=== PATIENT | female | born 1940 | race Caucasian/White ===

== ENCOUNTER 2018-07-06 12:07 | Outpatient (REF) | payer MEDICARE, SELFPAY ==
[2018-07-06 13:31] LABS: Anion Gap 9.3 mmol/L (3-11); BUN 23 mg/dL (7-18); CO2 26.7 mmol/L (21.0-32.0); CREATININE 0.94 mg/dL (0.55-1.02); Calcium 8.7 mg/dL (8.5-10.1); Chloride 106 mmol/L (98-107); Glucose 89 mg/dL (70-100); Potassium 4.4 mmol/L (3.5-5.1); Sodium 142 mmol/L (136-145)
[2018-07-06 14:12] LABS: Bilirubin Negative (Negative); Blood Negative (Negative); Clarity Clear; Glucose Negative (Negative); Ketones Negative (Negative); Leukocyte Esterase Moderate (Negative); Nitrite Negative (Negative); Urobilinogen 0.2 EU/dL (Up TO 0.2)
[2018-07-06 14:46] LABS: Bacteria Few HPF (Negative); C & S Indicated? Yes; Casts Negative LPF (Negative); Crystals Negative HPF (Negative); Epithelial Cells Few HPF (Negative); Mucus Negative (Negative); Other Cells Rare Renal (Negative); RBC Negative (0-2); WBC >50 HPF (0-5)
== END 2018-07-06 12:27 ==
LOC: NCHCN 12:07
PROVIDERS: PCP Family Medicine; Visit Provider Nurse Practitioner Family
DX: R30.0 Dysuria (principal); I10 Essential (primary) hypertension; D50.9 Iron deficiency anemia, unspecified
CPT/HCPCS: 80048; 87077; 81003; 81015; 85025; 87086; 87186

== ENCOUNTER 2018-07-07 15:44 | Outpatient (REF) | payer MEDICARE, SELFPAY ==
[2018-07-07 19:47] LABS: Bilirubin Negative (Negative); Blood Negative (Negative); Clarity Sl Cloudy; Glucose Negative (Negative); Ketones Trace mg/dL (Negative); Leukocyte Esterase Negative (Negative); Nitrite Negative (Negative); Urobilinogen 0.2 EU/dL (Up TO 0.2); pH 6.5 (5-8)
[2018-07-07 19:55] LABS: Abs Immature Grans 0.02 k/cumm (0.0-0.09); Absolute Basophil Count 0.04 k/cumm (0.0-0.2); Absolute Eosinophil Count 0.35 k/cumm (0.0-0.7); Absolute Lymphocyte Count 1.24 k/cumm (1.2-3.4); Absolute Monocyte Count 1.23 k/cumm (0.11-0.7); Absolute Neutrophil Count 5.73 k/cumm (1.2-6.7); Basophils % 0.5; Eosinophils % 4.1; HCT 34.8 % (36.0-46.0); HGB 10.7 g/dL (12.0-15.5); Immature Grans % 0.2; Lymphocytes % 14.4; Mean Corp. HGB Concentration 30.7 g/dL (32.0-36.0); Mean Corpuscular Volume 87.7 fL (80-95); Mean Platelet Volume 11.5 fL (8.0-11.0); Monocytes % 14.3; Neutrophils % 66.5; Platelet Count 232 x1000/uL (130-400); RBC 3.97 m/cumm (4.00-5.20); RBC Distribution Width 24.5 % (11.7-14.6); White Blood Cell Count 8.61 k/cumm (4.4-10.8)
[2018-07-07 20:13] LABS: Anion Gap 11.6 mmol/L (3-11); BUN 25 mg/dL (7-18); CO2 26.4 mmol/L (21.0-32.0); CREATININE 1.08 mg/dL (0.55-1.02); Calcium 9.2 mg/dL (8.5-10.1); Chloride 105 mmol/L (98-107); Estimated GFR 49.33 (mL/min/1.73m2); Glucose 96 mg/dL (70-100); Potassium 4.7 mmol/L (3.5-5.1); Sodium 143 mmol/L (136-145)
== END 2018-07-07 16:04 ==
LOC: NCHCN 15:44
PROVIDERS: PCP Family Medicine; Visit Provider Nurse Practitioner Family
DX: R30.0 Dysuria (principal); I10 Essential (primary) hypertension; D50.9 Iron deficiency anemia, unspecified
CPT/HCPCS: 80048; 81003; 85025

== ENCOUNTER 2018-07-29 08:22 | Outpatient (REF) | payer MEDICARE, SELFPAY ==
[2018-07-29 12:21] LABS: Mean Corp. HGB Concentration 31.6 g/dL (32.0-36.0); Mean Corpuscular Hemoglobin 27.3 pg (27.0-33.0); Mean Corpuscular Volume 86.6 fL (80-95); Mean Platelet Volume 11.4 fL (8.0-11.0); Platelet Count 236 x1000/uL (130-400); RBC 4.39 m/cumm (4.00-5.20); White Blood Cell Count 6.16 k/cumm (4.4-10.8)
[2018-07-29 12:31] LABS: Iron 58 ug/dL (50-175); Total Iron Binding Capacity 282 ug/dL (250-450); Transferrin Sat 21 % (15-50)
[2018-07-29 12:59] LABS: Anion Gap 11.5 mmol/L (3-11); BUN 25 mg/dL (7-18); CO2 27.5 mmol/L (21.0-32.0); CREATININE 1.01 mg/dL (0.55-1.02); Calcium 9.2 mg/dL (8.5-10.1); Chloride 101 mmol/L (98-107); Estimated GFR 53.29 (mL/min/1.73m2); Ferritin 22 ng/mL (8-388); Glucose 101 mg/dL (70-100); Potassium 4.2 mmol/L (3.5-5.1); Sodium 140 mmol/L (136-145); Vitamin B12 423 pg/mL (193-986)
[2018-07-29 13:07] LABS: Folate > 20.0 ng/mL (8.6-20.0)
== END 2018-07-29 08:42 ==
LOC: NCHCN 08:22
PROVIDERS: PCP Family Medicine; Visit Provider Family Medicine
DX: I10 Essential (primary) hypertension (principal); D50.9 Iron deficiency anemia, unspecified; E03.9 Hypothyroidism, unspecified
CPT/HCPCS: 80048; 85027; 82607; 82728; 82746; 83540; 83550; 84443

== ENCOUNTER 2018-11-01 09:08 | Outpatient (REF) | payer MEDICARE, SELFPAY ==
[2018-11-01 12:27] LABS: HCT 39.2 % (36.0-46.0); HGB 12.6 g/dL (12.0-15.5); Mean Corp. HGB Concentration 32.1 g/dL (32.0-36.0); Mean Corpuscular Hemoglobin 30.4 pg (27.0-33.0); Mean Corpuscular Volume 94.7 fL (80-95); Mean Platelet Volume 11.5 fL (8.0-11.0); Platelet Count 223 x1000/uL (130-400); RBC 4.14 m/cumm (4.00-5.20); RBC Distribution Width 15.2 % (11.7-14.6); White Blood Cell Count 6.67 k/cumm (4.4-10.8)
[2018-11-01 14:05] LABS: Anion Gap 7.5 mmol/L (3-11); BUN 24 mg/dL (7-18); CO2 28.5 mmol/L (21.0-32.0); CREATININE 1.03 mg/dL (0.55-1.02); Calcium 9.4 mg/dL (8.5-10.1); Chloride 105 mmol/L (98-107); Ferritin 27 ng/mL (8-388); Glucose 89 mg/dL (70-100); Potassium 4.3 mmol/L (3.5-5.1); Sodium 141 mmol/L (136-145)
== END 2018-11-01 09:28 ==
LOC: NCHCN 09:08
PROVIDERS: PCP Family Medicine; Visit Provider Family Medicine
DX: D50.9 Iron deficiency anemia, unspecified (principal); I10 Essential (primary) hypertension
CPT/HCPCS: 80048; 85027; 82728

== ENCOUNTER 2018-11-30 01:47 | Outpatient (CLI) | payer MEDICARE, SELFPAY ==
--- NOTE | 2018-11-30 08:30 | DI.RAD_ITS ---
SYMPTOM/DIAGNOSIS: CHRONIC LOW BACK PAIN, M54.5 LUMBAR SPINE: AP, lateral and bilateral oblique views were obtained. There are five lumbar type vertebral bodies. There is grade I pseudospondylolisthesis of L 4 on L 5. There is disc space narrowing at T 12-L 1, L 4-5 and L 5-S 1. There are vacuum discs at T 12-L 1 and L 5-S 1. There are degenerative changes of the facets throughout the lumbar spine, particularly from L 3-4 through L 5-S 1. No acute fractures or subluxations are seen. IMPRESSION: Moderate degenerative changes seen in the lumbar spine.
== END 2018-11-30 02:07 ==
PROVIDERS: PCP Family Medicine; Visit Provider Family Medicine
DX: M54.5 Low back pain (principal); M43.17 Spondylolisthesis, lumbosacral region; M47.817 Spondylosis without myelopathy or radiculopathy, lumbosacral region; M51.37 Other intervertebral disc degeneration, lumbosacral region; G89.29 Other chronic pain
CPT/HCPCS: 72110

== ENCOUNTER 2018-12-14 00:16 | Outpatient (CLI) | payer MEDICARE, SELFPAY ==
--- NOTE | 2018-12-14 08:00 | DI.MAMMO_ITS ---
SYMPTOM/DIAGNOSIS: SCREENING, Z12.31 MAMMOGRAMS: Mammograms were interpreted according to the usual protocol including computer analysis with CAD system, tomosynthesis and C view imaging. The breasts are of moderate density. There is asymmetric radiodensity of the upper outer quadrant of the left breast as seen on multiple previous examinations including 09/2017. No new mass or clumped microcalcification identified in either breast. CONCLUSION: No specific evidence of malignancy at this time. Routine screening examinations are suggested at yearly intervals in this age group according to the ACS/ACR guidelines. Category 1. Breast density, category B. MQSA ASSESSMENT OF FINDINGS: Negative. Category 1. Patient will receive a letter notifying them of these results. BI-RADS category B. There are scattered areas of fibroglandular density.
== END 2018-12-14 00:36 ==
PROVIDERS: PCP Family Medicine; Visit Provider Family Medicine
DX: Z12.31 Encounter for screening mammogram for malignant neoplasm of breast (principal)
CPT/HCPCS: 77063; 77067

== ENCOUNTER 2019-01-10 10:49 | Outpatient (REF) | payer MEDICARE, SELFPAY ==
[2019-01-10 13:21] LABS: Anion Gap 10.8 mmol/L (3-11); BUN 26 mg/dL (7-18); CO2 24.2 mmol/L (21.0-32.0); CREATININE 1.04 mg/dL (0.55-1.02); Calcium 9.3 mg/dL (8.5-10.1); Chloride 104 mmol/L (98-107); Estimated GFR 51.52 (mL/min/1.73m2); Glucose 105 mg/dL (70-100); Potassium 4.7 mmol/L (3.5-5.1); Sodium 139 mmol/L (136-145)
== END 2019-01-10 11:09 ==
LOC: NCHCN 10:49
PROVIDERS: PCP Family Medicine; Visit Provider Family Medicine
DX: I10 Essential (primary) hypertension (principal); N18.3 Chronic kidney disease, stage 3 (moderate)
CPT/HCPCS: 80048

== ENCOUNTER 2019-06-06 12:17 | Outpatient (REF) | payer MEDICARE, SELFPAY ==
[2019-06-06 12:53] LABS: HCT 39.5 % (36.0-46.0); Mean Corp. HGB Concentration 32.9 g/dL (32.0-36.0); Mean Corpuscular Volume 94.3 fL (80-95); Mean Platelet Volume 11.4 fL (8.0-11.0); Platelet Count 195 x1000/uL (130-400); RBC 4.19 m/cumm (4.00-5.20); RBC Distribution Width 13.4 % (11.7-14.6)
[2019-06-06 13:20] LABS: ALT 19 U/L (14-59); AST 17 U/L (15-37); Albumin 3.6 g/dL (3.4-5.0); Alkaline Phosphatase 61 U/L (46-116); Anion Gap 7.7 mmol/L (3-11); BUN 21 mg/dL (7-18); Bilirubin, Total 0.4 mg/dL (0.2-1.0); CO2 27.3 mmol/L (21.0-32.0); CREATININE 0.89 mg/dL (0.55-1.02); Calcium 8.7 mg/dL (8.5-10.1); Chloride 105 mmol/L (98-107); Glucose 89 mg/dL (70-100); Potassium 4.7 mmol/L (3.5-5.1); Sodium 140 mmol/L (136-145); Total Protein 6.6 g/dL (6.4-8.2)
[2019-06-06 15:43] LABS: Ferritin 79 ng/mL (8-388)
== END 2019-06-06 12:37 ==
LOC: NCHCN 12:17
PROVIDERS: PCP Family Medicine; Visit Provider Family Medicine
DX: D50.9 Iron deficiency anemia, unspecified (principal); I10 Essential (primary) hypertension; E03.9 Hypothyroidism, unspecified
CPT/HCPCS: 80053; 85027; 82728; 84443

== ENCOUNTER 2019-06-13 13:43 | Outpatient (REF) | payer MEDICARE, SELFPAY ==
--- NOTE | 2019-06-13 13:15 | SKI_PTH ---
PATIENT: Caren Graham LOC: [facility] U#:[id number] AGE/SX: 78/F ROOM: RE06/13/[address]: Jael Taylor : 1940 BED: DIS: 06/13/2019 SPEC #: [id number] RECD: 06/13/19 18:10 STATUS: RAFAT REDeo #: [id number] GEOVANNA: 06/13/19 13:[address]: Jael Taylor DEPT: Surgical Specimen RECD BY: Jaylyn Cobb Tissues: 1 - SKIN BIOPSY(SHAVE/PUNCH) Procedures: SKIN LEVEL 4 Comments: [id number]
== END 2019-06-13 14:03 ==
LOC: NCHCN 13:43
PROVIDERS: PCP Family Medicine; Visit Provider Family Medicine
DX: L82.1 Other seborrheic keratosis (principal)
CPT/HCPCS: 88305

== ENCOUNTER 2020-10-29 22:17 | Outpatient (REF) | payer MEDICARE, SELFPAY ==
[2020-10-29 19:21] LABS: HCT 41.2 % (36.0-46.0); HGB 13.5 g/dL (11.2-15.7); MCH 30.2 pg (27.0-33.0); MCHC 32.8 % (32.0-36.0); MCV 92.2 fL (80-95); MPV 10.9 fL (8.0-11.0); Platelet Count 236 10^3/uL (130-400); RBC 4.47 10^6/uL (3.93-5.22); RDW-SD 43.6 fL; WBC 7.38 10^3/uL (4.4-10.8)
[2020-10-29 20:36] LABS: ALT 21 U/L (14-59); AST 20 U/L (15-37); Alkaline Phosphatase 75 U/L (46-116); Anion Gap 10.4 mmol/L (3-11); BUN 20 mg/dL (7-18); Bilirubin, Total 0.2 mg/dL (0.2-1.0); CO2 25.6 mmol/L (21.0-32.0); Calcium 9.7 mg/dL (8.5-10.1); Chloride 106 mmol/L (98-107); Estimated GFR 53.62 (mL/min/1.73m2); Ferritin 72 ng/mL (8-252); Glucose 117 mg/dL (74-106); Potassium 5.2 mmol/L (3.5-5.1); Sodium 142 mmol/L (136-145); TSH (W/Ref FT4) 1.57 uIU/mL (0.36-3.74); Total Protein 7.1 g/dL (6.4-8.2)
== END 2020-10-29 22:18 | disposition home or self-care (01) ==
LOC: NCHCN 22:17
PROVIDERS: PCP Family Medicine; Visit Provider Family Medicine
DX: I10 Essential (primary) hypertension (principal); D50.9 Iron deficiency anemia, unspecified; E03.9 Hypothyroidism, unspecified; N18.30 Chronic kidney disease, stage 3 unspecified
CPT/HCPCS: 80053; 85027; 82728; 84443

== ENCOUNTER 2021-01-15 02:26 | Outpatient (CLI) | payer MEDICARE, SELFPAY ==
--- NOTE | 2021-01-15 | DI.DEXA_ITS ---
EXAM: XR DEXA BONE DENSITY W/WO ALYSIA CLINICAL HISTORY: DISORDER OF BONE DENSITY,M85.88 TECHNIQUE: Routine DEXA evaluation of the lumbar spine, hip, or forearm. COMPARISON: Prior DEXA scan September 2017 FINDINGS: Performed on a [employer] unit. Lateral image: No compression fracture evident. Lumbar Spine total T-score: -1.3 . Prior 2018 reading was -1.6 Hip total T-score:-2.4 . Prior 2018 reading was identical. Independent reading at the femoral neck yields a T-score of -2.3 Forearm total T-score: -3.0 IMPRESSION: Bone mineral density measures in the osteopenia bordering on osteoporosis. Range. Fracture risk is m oderate-high. Note: Any spine fracture indicates 5x risk for subsequent spine fracture and 2x risk for subsequent h ip fracture. World Health Organization criteria for BMD interpretation classify patients: Normal...... T- Score at or above -1.0 Osteopenic... T- Score between -1.0 and -2.5 Osteoporosis... T-Score at or below -2.5
--- NOTE | 2021-01-15 16:12 | DI.MAMMO_ITS ---
EXAM: MG MAMMO SCREENING CLINICAL HISTORY: SCREENING, Z12.31. TECHNIQUE: Bilateral full field digital CC and MLO mammographic images were obtained with 3D tomosyn thesis and utilizing computer aided detection (CAD). COMPARISON: Prior mammograms dating back to 2010, the most recent being November 2018. FINDINGS: Asymmetric tissue in left breast is unchanged from all prior studies. There are no new spiculated masses nor malignant appearing microcalcification groups. There is no significant architectural distortion nor skin thickening-retraction. IMPRESSION: No radiographic evidence of malignancy. BI-RADS Category 1 - Negative Breast Density - Category B - Scattered areas of fibroglandular density Breast density Category C or D implies that the patient has dense breast tissue. Dense breast tissue can make it harder to find cancer on a mammogram. Dense breast tissue is also associated with an incr eased risk of breast cancer. This information about the result of the mammogram report was provided to the patient to raise their awareness. Use this report when you speak with the patient about their risks for breast cancer, which includes their family history. At that time, you may recommend additional screening tests (Ultrasoun d or MRI) as these tests may add significant information. A negative radiographic report should not delay biopsy if a dominant or clinically suspicious mass is present. Up to ten percent of cancers are not identified on mammography. A negative report may reinforce clinical impression. Adenosis and dense breasts may obscure an underlying neoplasm. False positive reports average 6 to 10%. Patient will receive a letter notifying them of these results.
== END 2021-01-15 02:46 ==
PROVIDERS: PCP Family Medicine; Visit Provider Family Medicine
DX: Z12.31 Encounter for screening mammogram for malignant neoplasm of breast (principal); M85.88 Other specified disorders of bone density and structure, other site
CPT/HCPCS: 77063; 77067; 77080

== ENCOUNTER 2021-05-08 18:26 | Outpatient (REF) | payer MEDICARE, SELFPAY ==
[2021-05-08 21:18] LABS: Abs Immature Grans 0.01 10^3/uL (0.0-0.06); Absolute Basophil Count 0.05 10^3/uL (0.0-0.2); Absolute Eosinophil Count 0.17 10^3/uL (0.0-0.7); Absolute Lymphocyte Count 1.59 10^3/uL (1.2-3.4); Absolute Neutrophil Count 4.67 10^3/uL (1.2-6.7); Basophils % 0.7; Eosinophils % 2.2; HCT 42.4 % (36.0-46.0); HGB 13.8 g/dL (11.2-15.7); Immature Grans % 0.1; Lymphocytes % 20.9; MCH 30.1 pg (27.0-33.0); MCHC 32.5 % (32.0-36.0); MCV 92.4 fL (80-95); MPV 11.9 fL (8.0-11.0); Monocytes % 14.5; Neutrophils % 61.6; Nucleated RBC 0 %; Platelet Count 202 10^3/uL (130-400); RBC 4.59 10^6/uL (3.93-5.22); RDW 13.1 % (11.7-14.6); RDW-SD 44.5 fL; WBC 7.59 10^3/uL (4.4-10.8)
[2021-05-08 21:36] LABS: ALT 20 U/L (14-59); AST 17 U/L (15-37); Albumin 4.2 g/dL (3.4-5.0); Alkaline Phosphatase 69 U/L (46-116); Anion Gap 8.9 mmol/L (3-11); BUN 29 mg/dL (7-18); Bilirubin, Total 0.3 mg/dL (0.2-1.0); CO2 26.1 mmol/L (21.0-32.0); CREATININE 1.2 mg/dL (0.55-1.02); Calcium 9.1 mg/dL (8.5-10.1); Chloride 106 mmol/L (98-107); Estimated GFR 43.45 (mL/min/1.73m2); Glucose 100 mg/dL (74-106); Potassium 4.8 mmol/L (3.5-5.1); Sodium 141 mmol/L (136-145); TSH (W/Ref FT4) 1.16 uIU/mL (0.36-3.74); Total Protein 7.2 g/dL (6.4-8.2)
== END 2021-05-08 18:27 | disposition home or self-care (01) ==
LOC: LBN 18:26
PROVIDERS: PCP Family Medicine; Visit Provider Physician Assistant Medical
DX: I10 Essential (primary) hypertension (principal)
CPT/HCPCS: 80053; 84443; 85025

== ENCOUNTER 2021-05-13 15:06 | Outpatient (REF) | payer MEDICARE, SELFPAY ==
[2021-05-13 15:13] LABS: BUN 29 mg/dL (7-18); CREATININE 0.9 mg/dL (0.55-1.02); Calcium 9.1 mg/dL (8.5-10.1); Chloride 107 mmol/L (98-107); Glucose 93 mg/dL (74-106); Potassium 4.8 mmol/L (3.5-5.1); Sodium 142 mmol/L (136-145)
== END 2021-05-13 15:07 | disposition home or self-care (01) ==
LOC: NCHCN 15:06
PROVIDERS: PCP Family Medicine; Visit Provider Family Medicine
DX: I10 Essential (primary) hypertension (principal); N18.30 Chronic kidney disease, stage 3 unspecified
CPT/HCPCS: 80048

== ENCOUNTER 2021-11-07 17:59 | Outpatient (REF) | payer MEDICARE, SELFPAY ==
[2021-11-07 16:24] LABS: HCT 40.7 % (36.0-46.0); MCH 29.7 pg (27.0-33.0); MCHC 31.9 % (32.0-36.0); MCV 93.1 fL (80-95); MPV 11.5 fL (8.0-11.0); Platelet Count 223 10^3/uL (130-400); RBC 4.37 10^6/uL (3.93-5.22); RDW 13.4 % (11.7-14.6); RDW-SD 45.7 fL; WBC 7.14 10^3/uL (4.4-10.8)
[2021-11-07 18:17] LABS: BUN 21 mg/dL (7-18); CREATININE 0.9 mg/dL (0.55-1.02); Calcium 8.9 mg/dL (8.5-10.1); Chloride 104 mmol/L (98-107); Ferritin 44 ng/mL (8-252); Glucose 87 mg/dL (74-106); Potassium 4.4 mmol/L (3.5-5.1); Sodium 141 mmol/L (136-145); TSH (W/Ref FT4) 2.93 uIU/mL (0.36-3.74)
[2021-11-11 11:05] LABS: Hepatitis C Ab w Rflx HCV PCR Negative (Negative)
== END 2021-11-07 18:00 | disposition home or self-care (01) ==
LOC: NCHCN 17:59
PROVIDERS: PCP Family Medicine; Visit Provider Family Medicine
DX: D50.9 Iron deficiency anemia, unspecified (principal); I10 Essential (primary) hypertension; E03.9 Hypothyroidism, unspecified; Z11.59 Encounter for screening for other viral diseases
CPT/HCPCS: 80048; 85027; 86803; 82728; 84443

== ENCOUNTER → 2021-11-26 03:18 | Outpatient (CLI) | payer MEDICARE, SELFPAY ==
--- NOTE | 2021-11-26 | DI.RAD_ITS ---
Exam(s) XR KNEE RT 3V AP,LAT,LEO EXAM: XR KNEE RT 3V AP,LAT,LEO CLINICAL HISTORY: RT KNEE PAIN,M25.561. TECHNIQUE: 2D digital imaging was performed. COMPARISON: No exams were available for comparison FINDINGS: Three views of the right knee reveal no evidence of acute fracture nor prominent joint effusion. The re is imsk-ym-rbje narrowing of the lateral compartment with valgus deformity. Medial compartment ex hibits normal height. Moderate degenerative changes in the patellofemoral compartment. Bone density is age-appropriate IMPRESSION: Yflh-sl-gygv degenerative narrowing of the lateral compartment. DATA REPOSITORY: RADIATION DOSE DELIVERED:
== END ==
PROVIDERS: PCP Family Medicine; Visit Provider Family Medicine
DX: M25.561 Pain in right knee (principal); M17.11 Unilateral primary osteoarthritis, right knee; M21.061 Valgus deformity, not elsewhere classified, right knee
CPT/HCPCS: 73562

== ENCOUNTER 2022-01-23 11:58 | Outpatient (CLI) | payer MEDICARE, SELFPAY ==
--- NOTE | 2022-01-23 08:45 | DI.RAD_ITS ---
Exam(s) XR HIP RT COMPLETE AP PELVIS EXAM: XR HIP RT COMPLETE AP PELVIS CLINICAL HISTORY: eval R hip pain TECHNIQUE: COMPARISON: CR XR DEXA BONE DENSITY W/WO ALYSIA from 01/15/2021 FINDINGS: Three views were obtained. There is mild to moderate loss of the cartilaginous joint spaces of both hips. There are moderate acetabular and trochanteric osteophytes noted bilaterally. Femoral heads a re fairly well maintained bilaterally with minimal marginal osteophyte formation. IMPRESSION: Esli-aq-bxqpneoc DJD both hips. RADIATION DOSE DELIVERED: Total DLP
== END 2022-01-23 11:59 | disposition home or self-care (01) ==
LOC: DIORS 11:58
PROVIDERS: PCP Family Medicine; Referring Provider Family Medicine; Visit Provider Student in an Organized Health Care Education/Training Program
DX: M16.0 Bilateral primary osteoarthritis of hip (principal); M17.11 Unilateral primary osteoarthritis, right knee; M21.061 Valgus deformity, not elsewhere classified, right knee
CPT/HCPCS: 99202; 73502

== ENCOUNTER 2022-04-10 10:53 | Outpatient (CLI) | payer MEDICARE, SELFPAY ==
--- NOTE | 2022-04-10 09:20 | DI.RAD_ITS ---
Exam(s) XR LUMBAR SPINE COMP W FLEX/EX EXAM: XR LUMBAR SPINE COMP W FLEX/EX CLINICAL HISTORY: BACK PAIN. TECHNIQUE: 2D digital imaging was performed. COMPARISON: Prior x-rays 11/30/2018 FINDINGS: Seven views, including flexion extension lateral views. No evidence of compression fracture. Advanced disc space narrowing at L5-S1 level again noted. Also advanced disc space narrowing again noted at T12-L1 level. Other disc spaces exhibit milder narrowing and appear unchanged. There is again noted an element of degenerative anterolisthesis of L4 upon L5 due to facet arthropathy. This is slightly more prominent with flexion than extension. Upon flexion there is approximately 1 cm anterior slippage of L4 upon L5.. Upon extension this is approximately 8 millimeters. No slippage seen at the other levels,. No osseous lesions. No significant scoliosis. Multilevel facet joint arthritic changes. Sacroiliac joints unremarkable. No osseous lesions. IMPRESSION: Degenerative anterolisthesis of L4 upon L5, as was also evident on images of November 2018. The amount of anterolisthesis of L4 upon L5 appears slightly more prominent with flexion than extensi on. Upon flexion there appears to be 10 millimeter anterior slippage of L4 upon L5. This is related to facet arthropathy. There are no pars defects at this level. DATA REPOSITORY: RADIATION DOSE DELIVERED:
== END 2022-04-10 10:54 | disposition home or self-care (01) ==
LOC: DIORS 10:53
PROVIDERS: PCP Family Medicine; Referring Provider Family Medicine; Visit Provider Student in an Organized Health Care Education/Training Program
DX: M21.061 Valgus deformity, not elsewhere classified, right knee (principal); M43.16 Spondylolisthesis, lumbar region; M51.36 Other intervertebral disc degeneration, lumbar region
CPT/HCPCS: 72114; 99213

== ENCOUNTER → 2022-05-01 01:02 | Outpatient (CLI) | payer MEDICARE, SELFPAY ==
--- NOTE | 2022-05-01 08:15 | DI.MRI_ITS ---
Exam(s) MR LUMBAR SPINE WO EXAM: MR LUMBAR SPINE WO CLINICAL HISTORY: pain, lumbar radiculopathy, m54.16. TECHNIQUE: Multiplanar multisequence MRI of the Lumbar spine was performed. COMPARISON: CR XR LUMBAR SPINE COMP W FLEX/EX from 04/10/2022 FINDINGS: Conus medullaris is at normal level. There is no evidence of conus mass nor subjacent clumping of in trathecal nerve roots to suggest arachnoiditis. The distal thecal sac appears unremarkable.There is no evidence of Tarlov intrasacral cysts nor other significant findings within the sacral canal Bones:There are no fractures nor ominous osseous lesions in the lumbar vertebral bodies and visualize d sacrum. With respect to the individual levels... T12-L1: Decreased disc height and signal. Mild retrolisthesis of T12 on L1. There is posterior bony ridging and annular bulging more so central and right. Mild central canal stenosis. Mild foraminal stenosis on the right moderate severe foraminal stenosis on the left. This is mostly related to dis c height loss. Also degenerative changes facet joints. L1-2: Relatively preserved disc height. No significant disc herniation posteriorly with no central c anal stenosis. There is no foraminal stenosis on the right side. Mild foraminal stenosis on the lef t side due to annular bulging in the exiting left neural foramen floor. Mild degenerative changes in the facet joints. L2-3: Mild disc space narrowing. Broad bulging of the annulus, left more so than right, resulting in mild central spinal canal stenosis and extending into the floor of the exiting left neural foramen r esulting in moderate left-sided foraminal stenosis. There does appear to be a superimposed disc prot rusion in left lateral within the exiting neural foramen at this level causing some impingement upon the exiting left nerve root. There is no foraminal stenosis on the right side at this level. Mild d egenerative changes in the facet joints. L3-4: Mild decreased disc height. Symmetrical annular bulging. Moderate central canal stenosis due to annular bulging, short AP dimensions the pedicles and moderate degenerative changes in the facet j oints. There is no prominent foraminal stenosis on either side at this level. Moderate facet arthro hal bilaterally. L4-5: This level exhibits anterolisthesis of L4 upon L5 due to facet arthropathy and there is disc sp mohsen narrowing which is more prominent on the right than the left side. There is severe central spina l canal stenosis at this level, this related to the degenerative anterolisthesis, and there bulging a nd are. Lateral recesses are carried forward. There is no foraminal stenosis on the left side. Mil d foraminal stenosis on the right side due to the more prominent disc height loss on the right side t xiong the left side at this level. L5-S1: This level exhibits relatively uniform advanced disc height loss. There is, however, no disc herniation at this level. Central canal dimensions are lower normal. There is significant vertical foraminal stenosis on the left side at this level with impingement of the exiting left nerve root bet ween the annular bulging and overlying pedicle in the exiting left neural foramen. Milder vertical f oraminal stenosis evident on the right side at this level. Moderate degenerative changes in the face ts bilaterally. Soft tissues: paraspinal soft tissues appear unremarkable. IMPRESSION: 1. Multilevel findings as described individually above. However, the most severe central spinal hipolito l stenosis is at the L4-5 level where there is degenerative anterolisthesis of L4 upon L5. There is only mild foraminal stenosis on the right side at this level. 2. Multilevel foraminal stenosis including bilaterally at L5-S1 level and asymmetric foraminal narrow ing above this level as described individually above. 3. At the L 2-3 level there is mild central canal stenosis.. In addition to annular bulging there is a superimposed left disc protrusion at the level of the exiting left neural foramen this level causi ng impingement of the exiting left nerve root. Other findings as above. Also benign intraosseous hemangioma in the L2 vertebral body. No lytic oss eous lesions. DATA REPOSITORY:
== END ==
PROVIDERS: PCP Family Medicine; Visit Provider Student in an Organized Health Care Education/Training Program
DX: M54.16 Radiculopathy, lumbar region (principal); M48.061 Spinal stenosis, lumbar region without neurogenic claudication; M48.07 Spinal stenosis, lumbosacral region
CPT/HCPCS: 72148

== ENCOUNTER 2022-07-28 13:42 | Outpatient (REF) | payer MEDICARE, SELFPAY | END 2022-07-28 13:43 | disposition home or self-care (01) | LOC: NCHCN 13:42 | PROVIDERS: PCP Family Medicine; Visit Provider Family Medicine | DX: B37.9 Candidiasis, unspecified (principal) | CPT/HCPCS: 87480; 87510; 87660 ==

== ENCOUNTER 2022-11-25 10:52 | Outpatient (REF) | payer MEDICARE, SELFPAY ==
[2022-11-25 16:38] LABS: HCT 39.6 % (36.0-46.0); HGB 12.6 g/dL (11.2-15.7); MCH 29.9 pg (27.0-33.0); MCHC 31.8 % (32.0-36.0); MCV 94 fL (80-95); MPV 11.2 fL (8.0-11.0); Platelet Count 211 10^3/uL (130-400); RBC 4.21 10^6/uL (3.93-5.22); RDW 14.1 % (11.7-14.6); RDW-SD 48.9 fL; WBC 7.55 10^3/uL (4.4-10.8)
[2022-11-25 17:20] LABS: ALT 17 U/L (14-59); AST 16 U/L (15-37); Albumin 3.8 g/dL (3.4-5.0); Alkaline Phosphatase 68 U/L (46-116); Anion Gap 8.2 mmol/L (3-11); BUN 21 mg/dL (7-18); Bilirubin, Total 0.4 mg/dL (0.2-1.0); CO2 25.8 mmol/L (21.0-32.0); CREATININE 0.9 mg/dL (0.55-1.02); Calcium 9.2 mg/dL (8.5-10.1); Chloride 108 mmol/L (98-107); Estimated GFR 64.63 (mL/min/1.73m2); Ferritin 64 ng/mL (8-252); Glucose 101 mg/dL (74-106); Potassium 5.2 mmol/L (3.5-5.1); Sodium 142 mmol/L (136-145); TSH (W/Ref FT4) 1.38 uIU/mL (0.36-3.74); Total Protein 6.7 g/dL (6.4-8.2)
== END 2022-11-25 10:53 | disposition home or self-care (01) ==
LOC: NCHCN 10:52
PROVIDERS: PCP Family Medicine; Visit Provider Family Medicine
DX: E03.9 Hypothyroidism, unspecified (principal); N18.30 Chronic kidney disease, stage 3 unspecified; I10 Essential (primary) hypertension; D50.9 Iron deficiency anemia, unspecified; R60.0 Localized edema
CPT/HCPCS: 80053; 85027; 82728; 84443

== ENCOUNTER 2022-12-23 02:21 | Outpatient (CLI) | payer MEDICARE, SELFPAY ==
--- NOTE | 2022-12-23 07:45 | DI.MAMMO_ITS ---
Exam(s) MAMMO SCREENING EXAM: MAMMO SCREENING CLINICAL HISTORY: SCREENING, Z12.31 TECHNIQUE: Mammograms were interpreted according to the usual protocol including computer analysis w [employer] CAD system, tomosynthesis and C-view imaging. COMPARISON: 2013 through 2020 FINDINGS: The breasts are composed of scattered fibroglandular densities, Breast Density category B. No suspicious masses or suspicious microcalcifications are seen. No skin thickening or abnormal axillary lymph nodes are seen. There has been no significant change from prior exams. IMPRESSION: BI-RADS Category 1, Negative mammogram Yearly screening mammography is recommended. Breast Density - Category B, scattered fibroglandular densities. A negative radiographic report should not delay biopsy if a dominant or clinically suspicious mass is present. Up to ten percent of cancers are not identified on mammography. A negative report may reinforce clinical impression. Adenosis and dense breasts may obscure an underlying neoplasm. False positive reports average 6 to 10%. Patient will receive a letter notifying them of these results.
== END 2022-12-23 02:41 ==
PROVIDERS: PCP Family Medicine; Visit Provider Family Medicine
DX: Z12.31 Encounter for screening mammogram for malignant neoplasm of breast (principal)
CPT/HCPCS: 77063; 77067

== ENCOUNTER 2023-05-08 18:11 | Outpatient (REF) | payer MEDICARE, SELFPAY ==
[2023-05-08 19:21] LABS: Abs Immature Grans 0.05 10^3/uL (0.0-0.06); Absolute Basophil Count 0.08 10^3/uL (0.0-0.2); Absolute Lymphocyte Count 1.39 10^3/uL (1.2-3.4); Absolute Monocyte Count 1.51 10^3/uL (0.1-0.8); Absolute Neutrophil Count 5.22 10^3/uL (1.2-6.7); Basophils % 0.9; Eosinophils % 2.4; HCT 38.6 % (36.0-46.0); HGB 12.6 g/dL (11.2-15.7); Immature Grans % 0.6; Lymphocytes % 16.4; MCH 29.4 pg (27.0-33.0); MCHC 32.6 % (32.0-36.0); MCV 90 fL (80-95); MPV 10.7 fL (8.0-11.0); Monocytes % 17.9; Neutrophils % 61.8; Platelet Count 241 10^3/uL (130-400); RBC 4.28 10^6/uL (3.93-5.22); RDW 13.4 % (11.7-14.6); RDW-SD 44.4 fL; WBC 8.45 10^3/uL (4.4-10.8)
[2023-05-08 19:39] LABS: ALT 75 U/L (14-59); AST 32 U/L (15-37); Albumin 3.7 g/dL (3.4-5.0); Alkaline Phosphatase 116 U/L (46-116); Anion Gap 9.6 mmol/L (3-11); BUN 32 mg/dL (7-18); Bilirubin, Total 0.3 mg/dL (0.2-1.0); CO2 25.4 mmol/L (21.0-32.0); CREATININE 1.5 mg/dL (0.55-1.02); Calcium 9.5 mg/dL (8.5-10.1); Chloride 108 mmol/L (98-107); Estimated GFR 35.01 (mL/min/1.73m2); Glucose 88 mg/dL (74-106); Lipase 45 U/L (16-77); Potassium 4.8 mmol/L (3.5-5.1); Sodium 143 mmol/L (136-145); Total Protein 6.7 g/dL (6.4-8.2)
[2023-05-08 19:44] LABS: Diff Comment Diff Reviewed
[2023-05-08 19:46] LABS: RBC Morphology Normal
== END 2023-05-08 18:12 | disposition home or self-care (01) ==
LOC: NCHCN 18:11
PROVIDERS: PCP Family Medicine; Visit Provider Family Medicine
DX: R10.9 Unspecified abdominal pain (principal); R11.2 Nausea with vomiting, unspecified
CPT/HCPCS: 80053; 83690; 85025

== ENCOUNTER → 2023-05-18 01:53 | Outpatient (CLI) | payer MEDICARE, SELFPAY ==
--- NOTE | 2023-05-18 | DI.US_ITS ---
Exam(s) US ABDOMEN RENAL EXAM: US ABDOMEN RENAL CLINICAL HISTORY: ABNL KIDNEY FUNCTION STUDY, R94.4, NAUSEA/VOMITING, R11.2, ABD PAIN, R10.9 TECHNIQUE: Ultrasound abdomen performed using standard protocol. COMPARISON: MR MR LUMBAR SPINE WO from 05/01/2022 FINDINGS: LIVER: Normal size and echogenicity. No focal liver lesions are seen. GALLBLADDER: No evidence of cholelithiasis. No evidence of wall thickening. No pericholecystic fluid identified. MINOR'S SIGN: Negative. BILIARY SYSTEM: No intrahepatic or extrahepatic biliary ductal dilation. KIDNEYS: Kidneys are normal in echogenicity. In size. The right kidney is 8.5 cm in length. The le ft kidney measures 9.5 cm in length. No evidence of renal calculi. No evidence of hydronephrosis. No renal mass or cyst identified. PANCREAS: Mostly obscured by bowel gas. SPLEEN: Not enlarged. ABDOMINAL AORTA AND IVC: Visualized portions normal caliber. ASCITES: None seen. Bladder: Prevoid bladder volume 184 cc. No postvoid residual. No bladder calculi or wall trabeculat ion. Get not visualized. IMPRESSION: Normal sonographic appearance of the abdomen, kidneys and bladder. DATA REPOSITORY:
== END ==
PROVIDERS: PCP Family Medicine; Visit Provider Family Medicine
DX: R94.4 Abnormal results of kidney function studies (principal); R11.2 Nausea with vomiting, unspecified; R10.9 Unspecified abdominal pain
CPT/HCPCS: 76770; 76700

== ENCOUNTER 2023-12-14 10:00 | Outpatient (REF) | payer MEDICARE, SELFPAY ==
[2023-12-14 15:43] LABS: HCT 40.6 % (36.0-46.0); HGB 13.1 g/dL (11.2-15.7); MCH 29.8 pg (27.0-33.0); MCHC 32.3 % (32.0-36.0); MCV 92 fL (80-95); MPV 11.5 fL (8.0-11.0); Platelet Count 187 10^3/uL (130-400); RDW 14.2 % (11.7-14.6); RDW-SD 48.5 fL; WBC 6.47 10^3/uL (4.4-10.8)
[2023-12-14 16:41] LABS: Vitamin D 25 Total 88.5 ng/mL (30-100)
[2023-12-14 16:57] LABS: ALT 20 U/L (14-59); AST 15 U/L (15-37); Albumin 3.7 g/dL (3.4-5.0); Alkaline Phosphatase 66 U/L (46-116); Anion Gap 9.7 mmol/L (3-11); BUN 23 mg/dL (7-18); Bilirubin, Total 0.4 mg/dL (0.2-1.0); CO2 27.3 mmol/L (21.0-32.0); Calcium 9.4 mg/dL (8.5-10.1); Chloride 104 mmol/L (98-107); Ferritin 88 ng/mL (8-252); Glucose 101 mg/dL (74-106); Potassium 4.6 mmol/L (3.5-5.1); Sodium 141 mmol/L (136-145); TSH (W/Ref FT4) 1.65 uIU/mL (0.36-3.74); Total Protein 6.8 g/dL (6.4-8.2)
[2023-12-14 17:11] LABS: C-Reactive Protein < 0.50 mg/dL (<or=0.5)
[2023-12-14 22:21] LABS: Rheumatoid Factor <8.6 IU/mL (<12.0)
[2023-12-15 10:17] LABS: Cyclic Citrullinated Peptide <2.5 U/mL (<5.0)
[2023-12-15 15:49] LABS: ANA Interpretation Negative (Negative)
== END 2023-12-14 10:01 | disposition home or self-care (01) ==
LOC: NCHCN 10:00
PROVIDERS: PCP Family Medicine; Visit Provider Family Medicine
DX: R74.01 Elevation of levels of liver transaminase levels (principal); E03.9 Hypothyroidism, unspecified; D50.9 Iron deficiency anemia, unspecified; M85.88 Other specified disorders of bone density and structure, other site; M79.641 Pain in right hand; M79.642 Pain in left hand
CPT/HCPCS: 80053; 82306; 85027; 86200; 82728; 84443; 86038; 86140; 86431

== ENCOUNTER → 2023-12-31 05:06 | Outpatient (CLI) | payer MEDICARE, SELFPAY ==
--- NOTE | 2023-12-31 | DI.DEXA_ITS ---
Exam(s) XR DEXA BONE DENSITY W/WO ALYSIA EXAM: XR DEXA BONE DENSITY W/WO ALYSIA CLINICAL HISTORY: M85.88 Other specified disorders of bone density and structure, other side TECHNIQUE: COMPARISON: CR XR DEXA BONE DENSITY W/WO ALYSIA from 01/15/2021 FINDINGS: Lateral Spine Image: Unremarkable. No compression deformities identified. Left hip: Total T-Score: -2.5. This compares to -2.4 on the prior examination. Total Z-Score: -0.4 T- and Z-scores: Findings are consistent with osteoporosis. Lumbar Spine: Total T-Score: -0.9. This compares to -1.3 on the prior examination. Total Z-Score: 1.8 T- and Z-scores: Within normal limits. IMPRESSION: Osteoporosis in the left hip.
== END ==
PROVIDERS: PCP Family Medicine; Visit Provider Family Medicine
DX: M81.0 Age-related osteoporosis without current pathological fracture (principal); M85.88 Other specified disorders of bone density and structure, other site
CPT/HCPCS: 77080

== ENCOUNTER 2024-12-19 13:25 | Outpatient (REF) | payer MEDICARE, SELFPAY ==
[2024-12-19 15:59] LABS: HCT 41.1 % (36.0-46.0); HGB 13.4 g/dL (11.2-15.7); MCH 30.1 pg (27.0-33.0); MCHC 32.6 % (32.0-36.0); MCV 92 fL (80-95); MPV 11.3 fL (8.0-11.0); Platelet Count 207 10^3/uL (130-400); RBC 4.45 10^6/uL (3.93-5.22); RDW 13.9 % (11.7-14.6); RDW-SD 47.6 fL; WBC 9.21 10^3/uL (4.4-10.8)
[2024-12-19 16:44] LABS: Calculated LDL 100 mg/dL (<100); Cholesterol 212 mg/dL (<200); Ferritin 145 ng/mL (8-252); HDL Cholesterol 89 mg/dL (>or=50); TSH (W/Ref FT4) 1.36 uIU/mL (0.36-3.74); Triglyceride 115 mg/dL (<150)
[2024-12-19 17:18] LABS: Hemoglobin A1C 5.4 % (<5.7)
== END 2024-12-19 13:26 | disposition home or self-care (01) ==
LOC: NCHCN 13:25
PROVIDERS: PCP Family Medicine; Visit Provider Family Medicine
DX: I10 Essential (primary) hypertension (principal); D50.9 Iron deficiency anemia, unspecified; E03.9 Hypothyroidism, unspecified; Z13.1 Encounter for screening for diabetes mellitus
CPT/HCPCS: 80061; 85027; 82728; 83036; 84443

== ENCOUNTER 2025-01-26 00:49 | Outpatient (CLI) | payer MEDICARE, SELFPAY ==
--- NOTE | 2025-01-26 | DI.MAMMO_ITS ---
Exam(s) MAMMO SCREENING EXAM: MAMMO SCREENING CLINICAL HISTORY: Z12.31 Screening. TECHNIQUE: Bilateral full field digital CC and MLO mammographic images were obtained with 3D tomosyn thesis and utilizing computer aided detection (CAD). COMPARISON: Prior mammograms dating back to 2014 were reviewed. FINDINGS: There has been no significant change in the appearance and distribution of the fibroglandular tissue. Asymmetric tissue in the left breast is unchanged from all prior mammograms. There are no new spiculated masses nor malignant appearing microcalcification groups. There is no significant architectural distortion nor skin thickening-retraction. IMPRESSION: No radiographic evidence of malignancy. BI-RADS Category 1 - Negative Breast Density - Category B - There are scattered areas of fibroglandular density. Breast density Category C or D implies that the patient has dense breast tissue. Dense breast tissue can make it harder to find cancer on a mammogram. Dense breast tissue is also associated with an incr eased risk of breast cancer. This information about the result of the mammogram report was provided to the patient to raise their awareness. Use this report when you speak with the patient about their risks for breast cancer, which includes their family history. At that time, you may recommend additional screening tests (Ultrasoun d or MRI) as these tests may add significant information. A negative radiographic report should not delay biopsy if a dominant or clinically suspicious mass is present. Up to ten percent of cancers are not identified on mammography. A negative report may reinforce clinical impression. Adenosis and dense breasts may obscure an underlying neoplasm. False positive reports average 6 to 10%. Patient will receive a letter notifying them of these results.
== END 2025-01-26 01:09 ==
LOC: DI 00:49
PROVIDERS: PCP Family Medicine; Visit Provider Family Medicine
DX: Z12.31 Encounter for screening mammogram for malignant neoplasm of breast (principal); R92.323 Mammographic fibroglandular density, bilateral breasts
CPT/HCPCS: 77063; 77067